=== PATIENT | female | born 1935 | race Caucasian/White ===

== ENCOUNTER → 2019-01-09 | Outpatient (CLI) | payer MEDICARE, BC ==
[~2019-01-09] MED LIST: ALTEPLASE RECOMB 2 MG VIAL IVP PRN; DEXTROSE 5%(*) 100 ML BAG 100 ML IVPB PRN; HEPARIN FLSH (PORT) 500 UN/5ML IVP PRN; LEV125 PO; LEVO-3 PO; LEVO750T44 PO; LIDOCAINE/SOD BICARB 8.4% SYR ID PRN; METO100T20 PO; METO25TA23 PO; NS(*) 0.9% 100 ML BAG 100 ML IVPB PRN; NS(*) 0.9% 250 ML BAG 250 ML IVPB PRN; NYST15PO4 TP; SIMV-54 PO; WATER FOR INJ,STERILE 20 ML IVP PRN
== END ==
LOC: SPU 12:31
PROVIDERS: ATTEND Emergency Medicine
DX: E03.9 Hypothyroidism, unspecified (principal); F03.90 Unspecified dementia, unspecified severity, without behavioral disturbance, psychotic disturbance, mood disturbance, and anxiety; I50.9 Heart failure, unspecified
CPT/HCPCS: 36591; J1642

== ENCOUNTER → 2019-01-09 | Outpatient (CLI) | payer MEDICARE, BC ==
[~2019-01-09] MED LIST changes: -ALTEPLASE RECOMB 2 MG VIAL IVP PRN; -DEXTROSE 5%(*) 100 ML BAG 100 ML IVPB PRN; -HEPARIN FLSH (PORT) 500 UN/5ML IVP PRN; +IOPAMIDOL 76% 100 ML INFUS BTL 100 ML ONE; -LIDOCAINE/SOD BICARB 8.4% SYR ID PRN; -NS(*) 0.9% 100 ML BAG 100 ML IVPB PRN; -NS(*) 0.9% 250 ML BAG 250 ML IVPB PRN; +NS(*) 0.9% 50 ML BAG 50 ML ONE; -WATER FOR INJ,STERILE 20 ML IVP PRN
--- NOTE | 2019-01-09 20:16 | RADIOLOGY IMAGING REPORT ---
FACILITY: [facility] PATIENT NAME: Marley Gutierrez : 1935 MR: [id number] V: [id number] EXAM DATE: ORDERING PHYSICIAN: ASHUTOSH TAYLOR TECHNOLOGIST: Location: [facility] Patient: Marley Gutierrez : 1935 Visit/Account:[id number] Date of Sevice: 01/09/2019 EXAMINATION: CTA of the chest with IV contrast HISTORY: Elevated d-dimer. TECHNIQUE: Pulmonary embolus protocol - Thin axial CT images of the chest were obtained with IV con trast during maximal pulmonary arterial opacification. Reconstruction of the source data includes mul tiplanar 2D coronal and sagittal reconstructed images, and 3D coronal and sagittal MIP images. Repres entative images have been stored on PACS. One of the following dose optimization techniques was utilized in the performance of this exam: Autom ated exposure control; adjustment of the mA and/or kV according to the patient's size; or use of an i terative reconstruction technique. Specific details can be referenced in the facility's radiology C T exam operational policy. Contrast: 75 mL of IV [id number]-[id number]. COMPARISON: None. FINDINGS: Pulmonary arteries: The pulmonary arteries are well opacified, without suspicious filling defect. Heart, aorta, and great vessels: Normal caliber thoracic aorta. Vascular calcifications including co ronary artery calcifications. Mild cardiac enlargement. No pericardial effusion. Left IJ central veno us port with tip in the mid SVC. Lungs and pleura: Mild scarring or atelectasis in the lower lungs. There is chronic parenchymal scar ring and volume loss in the right upper lung posteriorly. Calcified granulomas in the right lower marissa g. No pleural effusion or pneumothorax. Mediastinum and bora: Small hiatal hernia. Visualized upper abdomen: Calcified granulomas in the liver and spleen. Partially visualized left re nal calculus. Cholecystectomy. Chest wall: Surgical changes along the right breast. Bones: There is patchy sclerosis throughout the posterior right fifth rib. There is chronic appearin g wedging of the T7 and T8 vertebral bodies with chronic remodeling and underlying sclerotic and lyti c change. IMPRESSION: 1. No evidence of pulmonary embolism. 2. No other acute findings in the chest. 3. Mild scarring or atelectasis in the lower lungs with some chronic appearing parenchymal scarring a nd volume loss in the posterior right upper lung. 4. Small hiatal hernia. 5. Sclerotic change in the posterior right fifth rib and in the T7 and T8 vertebral bodies with chron ic appearing wedging and remodeling, possibly related to metastatic disease. Surgical changes are not ed in the right breast with an indwelling venous port. Correlate with relevant cancer history. No flaco or imaging is available for comparison. Report Dictated By: Andrea Leong MD at 01/09/2019 7:47 PM Report E-Signed By: Andrea Leong MD at 01/09/2019 8:09 PM WSN:[id number]
== END ==
LOC: CT 17:09
PROVIDERS: ATTEND Emergency Medicine
DX: R79.89 Other specified abnormal findings of blood chemistry (principal)
CPT/HCPCS: 71275; J7050; Q9967

== ENCOUNTER → 2019-01-09 | Outpatient (CLI) | payer MEDICARE, BC ==
[~2019-01-09] MED LIST changes: -IOPAMIDOL 76% 100 ML INFUS BTL 100 ML ONE; -NS(*) 0.9% 50 ML BAG 50 ML ONE
== END ==
LOC: LAB 11:25
PROVIDERS: ATTEND Emergency Medicine
DX: R10.9 Unspecified abdominal pain (principal); E03.9 Hypothyroidism, unspecified; F03.90 Unspecified dementia, unspecified severity, without behavioral disturbance, psychotic disturbance, mood disturbance, and anxiety; M79.606 Pain in leg, unspecified; I50.9 Heart failure, unspecified
CPT/HCPCS: 81001; 82306; 82550; 82607; 83880; 84443; 85379; 86140

== ENCOUNTER → 2019-01-23 | Outpatient (CLI) | payer MEDICARE, BC | LOC: LAB 11:36 | PROVIDERS: ATTEND Emergency Medicine | DX: N39.0 Urinary tract infection, site not specified (principal) | CPT/HCPCS: 81001; 87088 ==